=== PATIENT | female | born 1960 | race Caucasian/White ===

== ENCOUNTER 2016-12-06 14:30 | Emergency (ER) | payer SELFPAY ==
[~2016-12-06 14:30] MED LIST: BACTRIM DS TAB1 EACH PO; BACTRIM DS TABL1 TAB PO; BACTROBAN15 GM TP; CLEOCIN HCL300 MG PO; CYCLOBENZAPRINE10 M1 PO; DAZIDOX10 MG; DOXYCYCLINE HY100 MG PO; FLEXERIL10 MG; NORCO 5-325 TA1 EACH PO; NORCO 5/325 TAB1 TAB PO; NORCO 7.5-3251 EACH PO; NORCO 7.5/3251 TA1 PO; PREDNISONE10 M1 PO
== END 2016-12-06 15:58 | disposition left against medical advice (07) ==
LOC: EDMED 14:30
DX: S99.922A Unspecified injury of left foot, initial encounter (principal); Z53.21 Procedure and treatment not carried out due to patient leaving prior to being seen by health care provider; W01.0XXA Fall on same level from slipping, tripping and stumbling without subsequent striking against object, initial encounter; Y92.480 Sidewalk as the place of occurrence of the external cause